=== PATIENT | male | born 1985 | race Two or more races ===

== ENCOUNTER 2024-07-19 06:04 | Day surgery (SDC) | payer OTHER ==
[2024-07-18 08:43] LABS: URINE APPEARANCE Clear; URINE BILIRRUBIN Negative (NEGATIVE); URINE BLOOD Negative; URINE COLOR Yellow; URINE GLUCOSE Negative (NEGATIVE); URINE KETONE Negative (NEGATIVE); URINE LEUKOCYTE Negative; URINE NITRATE Negative; URINE PROTEIN Negative (NEGATIVE); URINE RBC 33.5 uL (0.0-20.8); URINE UROBILINOGEN 0.2 E.U./dl
[2024-07-18 08:44] LABS: BASO % 0.9 % (0.1-1.2); EOS # 0.29 (0.04-0.54); EOS % 6.5 % (0.7-7.0); HEMATOCRIT 40.9 % (40.1-51.0); LYMPH # 1.66 (1.18-3.74); MONO # 0.38 (0.24-0.82); MONO % 8.5 % (4.7-12.5); NEUT % 46.7 % (34.0-71.1); PLATELET COUNT 232 K/uL (163-369); RED BLOOD COUNT 4.82 M/uL (4.63-6.08); RED CELL DISTRIBUTION WIDTH 11.9 % (11.6-14.4)
[2024-07-18 08:53] LABS: URINE BACTERIA 1.2 uL (0.0-1933); URINE EPITHELIAL CELLS 0.3 uL (0.0-38.8); URINE WBC 1.2 uL (0.0-23.2)
[2024-07-18 09:11] LABS: INR 1.01; PARTIAL THROMBOPLASTIN TIME 29.7 SECONDS (22.0-34.0)
[2024-07-18 09:15] LABS: ALBUMIN 4.2 gm/dL (3.4-5.0); BILIRUBIN TOTAL 0.58 mg/dL (0.3-1.2); CALCIUM 9.1 mg/dL (8.5-10.1); CREATININE SERUM 0.81 mg/dL (0.70-1.30); GFR 106.09; GLOBULINA 3.1 G/DL (2.4-3.5); POTASSIUM 4.33 mEq/L (3.5-5.1); TOTAL PROTEIN 7.3 gm/dL (6.4-8.2)
[~2024-07-19 06:04] MED LIST: PROBIOTIC250 MG; [UNRECOGNIZED DRUG - OTHER]
[2024-07-19] MEDS ORDERED: CEFAZOLIN SODIUM 1,000 MG VIAL ONE (08:09)
== END 2024-07-19 13:10 | disposition home or self-care (01) ==
LOC: CIR.AMB 06:04
PROVIDERS: ATTEND Orthopaedic Surgery Hand Surgery
DX: D21.12 Benign neoplasm of connective and other soft tissue of left upper limb, including shoulder (principal)